=== PATIENT | female | born 1990 | race Hispanic/Latino ===

== ENCOUNTER 2020-05-13 19:31 | Emergency (ER) | payer SELFPAY ==
--- NOTE | 2020-05-13 20:26 | EDPHYS ---
Physician Documentation [facility] Name: Lidia Huang Age: 29 yrs Sex: Female : 1990 Arrival Date: 05/13/2020 Time: 19:33 Bed 14 Private MD: ED Physician Jay Landeros HPI: 05/13 20:22 This 29 yrs old Female presents to ER via Ambulatory with complaints of Knee cp Pain. 20:22 The patient presents with pain, that is acute. The complaints affect the right knee. cp Context: the patient can fully bear weight, the patient is able to ambulate, with mild difficulty, was laying in bed and extended right knee and felt "pop". Onset: The symptoms/episode began/occurred 2 day(s) ago. 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 - Social history:: Smoking status: Patient reports the use of cigarette tobacco products, smokes one-half pack cigarettes per day. ROS: 20:24 Back: Negative for pain at rest, pain with movement. cp 20:24 MS/extremity: Positive for pain, of the right knee, Negative for injury or acute deformity, decreased range of motion, paresthesias, tenderness. 20:24 Skin: Negative for cellulitis, rash. 20:24 All other systems are negative. Exam: 20:24 Constitutional: The patient appears in no acute distress, alert, awake, well developed, cp well nourished. 20:24 Musculoskeletal/extremity: ROM: full passive range of motion, in the right knee, limited passive range of motion due to pain, in the right knee, mild, Perfusion: the extremity is normally perfused throughout, Sensation intact. Joints: All joints are normal except the right knee displays mild swelling noted medial suprapatellar, no ROM restriction or tenderness to palpation, no laxity noted, DVT Exam: No signs of deep vein thrombosis. 20:24 Skin: cellulitis, is not appreciated, no rash present. Vital Signs: 20:06 BP 128 / 89; Pulse 76; Resp 15 S; Temp 98; Pulse Ox 100% on R/A; Weight 68.04 kg (R); ca1 Height 5 ft. 5 in. (165.10 cm) (R); 20:06 Body Mass Index 24.96 (68.04 kg, 165.10 cm) ca1 MDM: 20:25 Patient medically screened. cp 20:25 Differential diagnosis: dislocation, closed fracture, contusion, tendonitis, effusion, cp sprain. 20:25 Data reviewed: vital signs, nurses notes, and as a result, I will discharge patient. cp Counseling: I had a detailed discussion with the patient and/or guardian regarding: the historical points, exam findings, and any diagnostic results supporting the discharge/admit diagnosis, the need for outpatient follow up, a family practitioner, to return to the emergency department if symptoms worsen or persist or if there are any questions or concerns that arise at home. ED course: VSS. Patient denies trauma or previous injury and is able to bear weight so xrays deferred. Recommend rest, NSAIDs for pain and f/u with PCP if pain continues. Administered Medications: No medications were administered Disposition: 20:45 Chart complete. 05/14 03:25 Co-signature as Attending Physician, Jay Landeros MD. [email or web address] Disposition: 05/13/20 20:25 Discharged to Home. Impression: Pain in right knee. - Condition is Stable. - Discharge Instructions: Knee Pain. - Prescriptions for Ibuprofen 800 mg Oral Tablet - take 1 tablet by ORAL route every 8 hours As needed take with food; 30 tablet. - Medication Reconciliation Form, Thank You Letter, Antibiotic Education, Prescription Opioid Use, Work release form form. - Follow up: Private Physician; When: 2 - 3 days; Reason: Worsening of condition. - Problem is new. - Symptoms are unchanged. Signatures: Luz Noel RN RN bb Yariel Barnes PA PA cp Syeda Francisco RN RN ca1 Jay Landeros MD MD [email or web address] Corrections: (The following items were deleted from the chart) 05/13 20:41 20:25 05/13/2020 20:25 Discharged to Home. Impression: Pain in right knee. Condition is bb Stable. Forms are Medication Reconciliation Form, Thank You Letter, Antibiotic Education, Prescription Opioid Use. Follow up: Private Physician; When: 2 - 3 days; Reason: Worsening of condition. Problem is new. Symptoms are unchanged. cp 05/14 18:20 05/13 19:24 Constitutional: The patient appears in no acute distress, alert, awake, cp well developed, well nourished, cp 05/14 18:05/13 19:24 Musculoskeletal/extremity: ROM: full passive range of motion, in the right cp knee, limited passive range of motion due to pain, in the right knee, mild, Perfusion: the extremity is normally perfused throughout, Sensation intact. Joints: All joints are normal except the right knee displays mild swelling noted medial suprapatellar, no ROM restriction or tenderness to palpation, no laxity noted, DVT Exam: No signs of deep vein thrombosis. cp 05/14 18:05/13 19:24 Skin: cellulitis, is not appreciated, no rash present. cp cp
--- NOTE | 2020-05-13 20:26 | ER ---
Nurse's Notes [facility] Name: Lidia Huang Age: 29 yrs Sex: Female : 1990 Arrival Date: 05/13/2020 Time: 19:33 Bed 14 Private MD: Diagnosis: Pain in right knee Presentation: 05/13 20:06 Chief complaint: Patient states: I have a bad R knee. 2 days ago it popped just ca1 spontaneously, no recent injuries. Reports pain R knee, swelling. Limited ROM on R knee. Coronavirus screen: Client denies travel out of the [place] in the last 14 days. At this time, the client does not indicate any symptoms associated with coronavirus-19. Ebola Screen: Patient negative for fever greater than or equal to 101.5 degrees Fahrenheit, and additional compatible Ebola Virus Disease symptoms Patient denies exposure to infectious person. Patient denies travel to an Ebola-affected area in the 21 days before illness onset. No symptoms or risks identified at this time. Initial Sepsis Screen: Does the patient meet any 2 criteria? No. Patient's initial sepsis screen is negative. Does the patient have a suspected source of infection? No. Patient's initial sepsis screen is negative. Risk Assessment: Do you want to hurt yourself or someone else? Patient reports no desire to harm self or others. Onset of symptoms was May 13, 2020. 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 - Social history:: Smoking status: Patient reports the use of cigarette tobacco products, smokes one-half pack cigarettes per day. Screenin:37 Abuse screen: Denies threats or abuse. Nutritional screening: No deficits noted. bb Tuberculosis screening: No symptoms or risk factors identified. Fall Risk None identified. Assessment: 20:37 General: Appears in no apparent distress. Behavior is calm, cooperative. Pain: bb Complains of pain in right knee. Neuro: Level of Consciousness is awake, alert, obeys commands, Oriented to person, place, time, situation. Cardiovascular: No deficits noted. Respiratory: Respiratory effort is even, unlabored, Respiratory pattern is regular. GI: No deficits noted. No signs and/or symptoms were reported involving the gastrointestinal system. Derm: Skin is pink, warm \T\ dry. Musculoskeletal: Circulation, motion, and sensation intact. Reports pain in right knee. 20:38 Reassessment: Patient is alert, oriented x 3, equal unlabored respirations, skin bb warm/dry/pink. pt verbalized understanding of and agrees to plan of care discharge instructions given pt ambulated with steady gait to exit work note given. Vital Signs: 20:06 BP 128 / 89; Pulse 76; Resp 15 S; Temp 98; Pulse Ox 100% on R/A; Weight 68.04 kg (R); ca1 Height 5 ft. 5 in. (165.10 cm) (R); 20:06 Body Mass Index 24.96 (68.04 kg, 165.10 cm) ca1 ED Course: 19:33 Patient arrived in ED. cf2 20:08 Triage completed. ca1 20:08 Arm band placed on right wrist. ca1 20:19 Yariel Barnes PA is PHCP. cp 20:19 Jay Landeros MD is Attending Physician. cp 20:37 Patient has correct armband on for positive identification. Bed in low position. Call bb light in reach. 20:37 No provider procedures requiring assistance completed. Patient did not have IV access bb during this emergency room visit. Administered Medications: No medications were administered Outcome: 20:25 Discharge ordered by MD. cp 20:40 Discharged to home ambulatory. bb 20:40 Condition: stable 20:40 Discharge instructions given to patient, Instructed on discharge instructions, follow up and referral plans. medication usage, Demonstrated understanding of instructions, follow-up care, medications, Prescriptions given X 1. 20:41 Patient left the ED. bb Signatures: Luz Noel RN RN bb Yariel Barnes PA PA cp Syeda Francisco RN RN ca1 Serg Jerez cf2
[2020-05-13 20:49] VITALS: BP 128/89; TEMP 98; O2SAT 100
== END 2020-05-13 20:41 | disposition home or self-care (01) ==
LOC: ER 19:31
DX: M25.561 Pain in right knee (principal); F17.210 Nicotine dependence, cigarettes, uncomplicated
CPT/HCPCS: 99282